=== PATIENT | female | born 1940 | race Caucasian/White ===

== ENCOUNTER 2021-09-25 16:05 | Observation (INO) | payer MEDICARE, OTHER ==
[~2021-09-25] VITALS: Ht 152.4 cm; Wt 83.9 kg
[2021-09-25] MEDS ORDERED: NOVOLOG FL100 UNIT/1 SQ (17:33)
[2021-09-25] MEDS ORDERED: FAMOTIDINE20 MG PO (17:34)
[2021-09-25] MEDS ORDERED: LEVEMIR FL100 UNIT/1 SQ (17:34)
[2021-09-25] MEDS ORDERED: OXYCODON-ACETA1 EAC1 PO (17:34)
[2021-09-25] MEDS ORDERED: LEVOTHYROXINE125 MCG PO (17:35)
[2021-09-25] MEDS ORDERED: MONTELUKAST SOD10 MG PO (17:35)
[2021-09-25] MEDS ORDERED: ENTRESTO 24 MG1 EACH PO (17:35)
[2021-09-25] MEDS ORDERED: METOPROLOL SUCC25 MG PO (17:35)
[2021-09-25] MEDS ORDERED: JARDIANCE10 MG PO (17:36)
[2021-09-25] MEDS ORDERED: OMEPRAZOLE20 MG PO (17:36)
[2021-09-25] MEDS ORDERED: SOLIFENACIN SUCC5 MG PO (17:36)
[2021-09-25] MEDS ORDERED: FLONASE 0.05% N16 GM (17:36)
[2021-09-25] MEDS ORDERED: ZETIA10 MG PO (17:37)
[2021-09-25] MEDS ORDERED: SERTRALINE HCL50 MG PO (17:37)
[2021-09-25] MEDS ORDERED: ASPIRIN EC81 MG PO (17:39)
[2021-09-25] MEDS ORDERED: PRENATAL VITAM1 EAC6 PO (17:39)
[2021-09-25] MEDS ORDERED: VITAMIN D350 MCG PO (17:40)
[2021-09-25] MEDS ORDERED: LORATADINE10 MG PO (17:40)
[2021-09-25] MEDS ORDERED: SENNA-S 8.6-501 EACH PO (17:41)
[2021-09-26 07:18] LABS: HEMOGLOBIN 13.1 gm/dl (12.3-15.3); RED BLOOD COUNT 4.32 M/UL (4.00-5.10); WHITE BLOOD COUNT 8.3 K/UL (4.5-11.0)
[2021-09-26] MEDS ORDERED: LASIX20 MG PO (15:20)
[2021-09-26] MEDS ORDERED: MEDROL DOSEPAK 24 MG PO ×2 (15:20→16:30)
[2021-09-26] MEDS ORDERED: OMNICEF 300 MG300 MG PO (15:20)
[2021-09-26] MEDS ORDERED: XARELTO 15 MG T15 MG PO (15:20)
[2021-09-26] MEDS ORDERED: MUCINEX600 MG PO (15:23)
== END 2021-09-26 17:50 | disposition home or self-care (01) ==
LOC: M/S 16:05
PROVIDERS: Physician Assistant Medical; ADMIT Internal Medicine
DX: N30.00 Acute cystitis without hematuria (principal); I13.0 Hypertensive heart and chronic kidney disease with heart failure and stage 1 through stage 4 chronic kidney disease, or unspecified chronic kidney disease; E11.22 Type 2 diabetes mellitus with diabetic chronic kidney disease; N18.9 Chronic kidney disease, unspecified; I50.22 Chronic systolic (congestive) heart failure; I42.9 Cardiomyopathy, unspecified; J96.11 Chronic respiratory failure with hypoxia; E78.5 Hyperlipidemia, unspecified; E03.9 Hypothyroidism, unspecified; I25.10 Atherosclerotic heart disease of native coronary artery without angina pectoris; G47.33 Obstructive sleep apnea (adult) (pediatric); Z95.5 Presence of coronary angioplasty implant and graft; Z79.82 Long term (current) use of aspirin; Z79.4 Long term (current) use of insulin; Z79.899 Other long term (current) drug therapy
CPT/HCPCS: 36415; 71046; 80048; 82962; 83735; 85027; 96374; G0378; G0379; J0696; J1940